=== PATIENT | female | born 1975 | race Two or more races ===

== ENCOUNTER → 2024-04-26 | Outpatient (CLI) | payer MEDICAID ==
[2024-04-26 07:28] LABS: Urine Bacteria None Seen /hpf (None Seen)
[2024-04-26 07:56] LABS: Basophils # (auto) 0 10 ^3/uL (0-0.2); Basophils % (auto) 0.5 % (0.0-2.0); Eosinophils # (auto) 0.2 10 ^3/uL (0-0.8); Eosinophils % (auto) 3.1 % (0.0-7.0); Hematocrit 41.2 % (36.0-46.0); Hemoglobin 14.1 g/dL (12.2-16.2); Lymphocytes # (auto) 3.1 10 ^3/uL (0.4-5.4); Lymphocytes % (auto) 45.4 % (10.0-50.0); Mean Corpuscular Hemoglobin 30.9 pg (28.0-32.0); Mean Corpuscular Hgb Conc. 34.4 g/dL (32.0-36.0); Monocytes # (auto) 0.5 10 ^3/uL (0-1.3); Monocytes % (auto) 7.1 % (0.0-12.0); Neutrophils % (auto) 43.9 % (37.0-80.0); Nucleated Red Blood Cells % 0.1 %; Red Blood Cells 4.57 10^6/uL (4.0-5.20); Red Cell Distribution Width 13.1 % (11.8-14.3); White Blood Cell 6.9 10^3/uL (4.4-10.8)
[2024-04-26 08:17] LABS: Urine Blood Negative /uL (Negative); Urine Clarity Clear (Clear); Urine Color Light-Yellow (Yellow); Urine Mucus FEW (None Seen); Urine Protein, UAD Negative (Negative); Urine Specific Gravity 1.023 (1.001-1.035); Urine Urobilinogen Normal (Negative); Urine WBC 4 /hpf (0 - 5)
[2024-04-26 08:42] LABS: Alanine Aminotransferase 87 U/L (7-40); Alkaline Phosphatase 116 U/L (46-116); Anion Gap 7 (5-15); Calcium 9.6 mg/dL (8.7-10.4); Carbon Dioxide 26 mmol/L (20-30); Chloride 109 mmol/L (98-107); Glucose 111 mg/dL (74-106); Potassium 4.3 mmol/L (3.5-5.1); Sodium 142 mmol/L (136-145)
[2024-04-26 08:43] LABS: BUN/Creatinine Ratio 20.3 (10.0-20.0); Blood Urea Nitrogen 14 mg/dL (9-23); LDL Cholesterol 133 mg/dL (< 100); Triglycerides 211 mg/dL (< 150)
[2024-04-26 08:44] LABS: Albumin 4.3 g/dL (3.2-4.8); Aspartate Aminotransferase 20 U/L (13-40); Cholesterol 196 mg/dL (< 200)
[2024-04-26 08:45] LABS: Bilirubin, Total 0.3 mg/dL (0.2-1.0); HDL Cholesterol 35 mg/dL (40-59); Total Protein 6.7 g/dL (5.7-8.2)
[2024-04-26 08:56] LABS: Creatinine, Urine 101.96 mg/dL (30.0-125.0)
[2024-04-26 08:58] LABS: Micro Albumin < 3.0 mg/L (<30.0)
[2024-04-26 09:01] LABS: Microalb/Creat Ratio, Urine < 3.0
== END | disposition home or self-care (01) ==
LOC: LAB 07:09
PROVIDERS: ATTEND Internal Medicine
DX: R73.03 Prediabetes (principal); E78.5 Hyperlipidemia, unspecified; E64.9 Sequelae of unspecified nutritional deficiency; Z00.00 Encounter for general adult medical examination without abnormal findings
CPT/HCPCS: 36415; 80053; 80061; 81001; 82043; 82570; 83036; 84443; 85025